=== PATIENT | male | born 1945 | race Caucasian/White ===

== ENCOUNTER 2023-12-10 12:28 | Emergency (ER) | payer MEDICARE ==
[~2023-12-10] VITALS: Ht 172.7 cm; Wt 90.9 kg
[~2023-12-10 12:28] MED LIST: ASPI325T6 PO; COZAAR 50MG50 MG/TAB PO; ELAVIL100 MG PO; NEURONTIN300 MG/CAP; SYNTHROID0.05 MG/TA PO
[2023-12-10 12:32] VITALS: TEMP 97.5
[2023-12-10 13:48] LABS: BASO % 0.2 % (0.0-2.0); EOS % 0.2 % (0.0-4.0); GRAN # 12.5 K/mm3 (1.4-6.5); HEMATOCRIT 38.7 % (42.0-52.0); HEMOGLOBIN 13.7 g/dl (13.5-18.0); LYMPH # 1.5 K/mm3 (1.2-3.4); LYMPH % 9.6 % (20.0-51.0); MEAN CELL VOLUME 97 fl (80.0-100.0); MEAN CORPUSCULAR HEMOGLOBIN 34 pg (27-31); MEAN CORPUSCULAR HGB CONC 35 g/dl (33.0-37.0); MEAN PLATELET VOLUME 8.7 fl (7.4-10.4); MONO # 1.5 K/mm3 (0.1-0.6); MONO % 9.6 % (1.7-9.3); PLATELET COUNT 193 K/mm3 (130-400); RED BLOOD COUNT 3.98 M/mm3 (4.20-5.60); REDCELL DISTRIBUTION WIDTH-CV 12.9 % (11.5-14.5)
[2023-12-10 14:06] LABS: ALBUMIN 3.7 g/dL (3.4-4.8); BILIRUBIN,TOTAL 0.9 mg/dL (0.2-1.2); C-REACTIVE PROTEIN 6.44 mg/dL (0.00-0.50); CALCIUM 9.5 mg/dL (8.4-10.2); CREATININE, serum 2.01 mg/dL (0.72-1.25); TOTAL PROTEIN 7.9 g/dl (6.2-8.1)
[2023-12-10 14:08] LABS: POTASSIUM 2.7 mEq/L (3.5-4.5)
[2023-12-10] MEDS ORDERED: NS 500 ML IV ONE (14:30)
[2023-12-10] MEDS ORDERED: Iodixanol-320 100 ML BOTTLE IV ONE (14:35)
[2023-12-10] MEDS ORDERED: NS 100 ML IV SCH (14:37)
[2023-12-10] MEDS ORDERED: methylPREDNISolone Sod Succ 125 MG/2 ML VIAL IV ONE (16:30)
[2023-12-10] MEDS ORDERED: Potassium Bicarbonate/Citrate 20 MEQ Effervescent TAB PO ONE (16:30)
[2023-12-10] MEDS ORDERED: Amoxicillin/Clavulanate K+ 875/125 MG TAB PO ONE (16:30)
[2023-12-10] MEDS ORDERED: KLOR-CON20 MEQ PO (16:31)
[2023-12-10] MEDS ORDERED: AMOXICILLIN 8751 TAB PO (16:31)
[2023-12-10] MEDS ORDERED: PREDNISONE20 MG PO (16:31)
[2023-12-10] MEDS ORDERED: NORCO 325 MG-51 TAB PO (16:31)
[2023-12-10 17:27] VITALS: BP 125/95; PULSE 85
== END 2023-12-10 17:19 | disposition home or self-care (01) ==
LOC: COL.ER 12:28
PROVIDERS: Nurse Practitioner
DX: K11.20 Sialoadenitis, unspecified (principal); E87.6 Hypokalemia
CPT/HCPCS: J2919; J7030; Q9967